=== PATIENT | female | born 1975 | race Caucasian/White ===

== ENCOUNTER 2017-07-16 16:40 | Emergency (ER) | payer OTHER ==
[2017-07-16 17:21] VITALS: BP 144/71
[2017-07-16] MEDS ORDERED: Azithromycin TAB* 250 MG PO ONE (17:33)
--- NOTE | 2017-07-16 17:37 | UC ---
Respiratory Complaint HPI - HPI Summary HPI Summary: 3 weeks of worsening cough, chest tightness and wheeze, no fevers, coughing up thick green sputum - History of Current Complaint Chief Complaint: UCRespiratory Time Seen by Provider: 07/16/17 17:29 Hx Obtained From: Patient Hx Last Menstrual Period: 3 wks ago ?: No Onset/Duration: Gradual Onset, Lasting Weeks - 3, Still Present Timing: Constant Severity Initially: Mild Severity Currently: Moderate Character: Cough: Productive Aggravating Factors: Exertion, Deep Breaths Alleviating Factors: Bronchodilator Associated Signs And Symptoms: Positive: Pleuritic Chest Pain, Wheezing, URI - Allergies/Home Medications Allergies/Adverse Reactions: Allergies Allergy/AdvReac Type Severity Reaction Status Date / Time Iodine Allergy Hives Verified 07/16/17 17:21 CT ORAL DRINK Allergy Unknown Rash And Uncoded 07/16/17 17:21 Itching Home Medications: Home Medications Cyclobenzaprine TAB* [Flexeril 10 MG TAB*] 1 tab PO DAILY 07/16/17 [History Confirmed 07/16/17] QUEtiapine XR TAB* [Seroquel Xr TAB*] 1 tab PO DAILY 07/16/17 [History Confirmed 07/16/17] PMH/Surg Hx/FS Hx/Imm Hx Previously Healthy: No Respiratory History: Asthma Other Psychological History: SA Disorder in remission - Surgical History Surgical History: None Surgery Procedure, Year, and Place: . TUBAL LIGATION. TONSILECTOMY. LT LUMPECTOMY 2007 (benign) - Family History Known Family History: Positive: None - Social History Occupation: Unemployed Lives: Alone Alcohol Use: None Alcohol Amount: Hx of 1 liter daily, decreased to 3 drinks/day to none Substance Use Type: None Substance Use Comment - Amount & Last Used: none in 9 years, Hx heroin Smoking Status (MU): Current Every Day Smoker Type: eCigarettes Amount Used/How Often: one daily Length of Time of Smoking/Using Tobacco: 23 years Have You Smoked in the Last Year: Yes Household Exposure Type: Cigarettes Review of Systems Constitutional: Negative Skin: Negative Eyes: Negative ENT: Nasal Discharge, Sinus Congestion, Sinus Pain/Tenderness Respiratory: Cough Cardiovascular: Negative Gastrointestinal: Negative Genitourinary: Negative Motor: Negative Neurovascular: Negative Musculoskeletal: Negative Neurological: Negative Psychological: Negative Is Patient Immunocompromised?: No All Other Systems Reviewed And Are Negative: Yes Physical Exam Triage Information Reviewed: Yes Appearance: Well-Appearing, No Pain Distress, Well-Nourished Vital Signs: Initial Vital Signs Temp 96.8 F 07/16/17 17:17 Pulse 94 07/16/17 17:17 Resp 18 07/16/17 17:17 BP 144/71 07/16/17 17:17 Pulse Ox 100 07/16/17 17:17 Vital Signs Reviewed: Yes Eye Exam: Normal Eyes: Positive: Conjunctiva Clear ENT Exam: Normal ENT: Positive: Normal ENT inspection, Hearing grossly normal, Pharynx normal, Nasal congestion, Nasal drainage, TMs normal, Uvula midline. Negative: Tonsillar swelling, Tonsillar exudate, Trismus, Muffled voice, Hoarse voice, Dental tenderness, Sinus tenderness Dental Exam: Normal Neck exam: Normal Neck: Positive: Supple, Nontender, No Lymphadenopathy Respiratory Exam: Normal Respiratory: Positive: Chest non-tender, Lungs clear, Normal breath sounds, No respiratory distress, No accessory muscle use Cardiovascular Exam: Normal Cardiovascular: Positive: RRR, No Murmur, Pulses Normal, Brisk Capillary Refill Musculoskeletal Exam: Normal Musculoskeletal: Positive: Strength Intact, ROM Intact, No Edema Neurological Exam: Normal Neurological: Positive: Alert, Muscle Tone Normal Psychological Exam: Normal Skin Exam: Normal UC Diagnostic Evaluation - Laboratory O2 Sat by Pulse Oximetry: 100 Respiratory Course/Dx - Course Course Of Treatment: Continue albuterol add zithromax, increase fluids, nicotine cesasation information follow blood pressure with pcp - Differential Dx/Diagnosis Provider Diagnoses: Acute bronchitis with bronchospasm, nicotine dependent, elevated blood pressure without dx of hypertension Discharge - Discharge Plan Condition: Stable Disposition: HOME Prescriptions: Azithromycin TAB* [Zithromax TAB (Z-DELROY) 250 mg #6 tabs] 250 mg PO DAILY #4 tab Patient Education Materials: How to Stop Smoking (ED), How to Use a Metered- Dose Inhaler (ED), Acute Bronchitis (ED), Hypertension (ED) Referrals: Jing Jaime NP [Primary Care Provider] - 2 Weeks
== END 2017-07-16 17:55 | disposition home or self-care (01) ==
LOC: UCEAST 16:40
DX: J20.9 Acute bronchitis, unspecified (principal); R03.0 Elevated blood-pressure reading, without diagnosis of hypertension; F17.210 Nicotine dependence, cigarettes, uncomplicated; Z88.8 Allergy status to other drugs, medicaments and biological substances; J45.909 Unspecified asthma, uncomplicated
CPT/HCPCS: 99212; A9270-GY; G0463

== ENCOUNTER 2018-10-11 20:01 | Emergency (ER) | payer OTHER ==
[2018-10-11 20:33] VITALS: BP 134/71
--- NOTE | 2018-10-11 20:40 | UC ---
Lower Extremity/Ankle HPI - HPI Summary HPI Summary: Pt kicked a couch at 1500 today injuring her right 5th toe. She stated she thinks the toe was dislocated because it was sticking out and she put it back into place. - History of Current Complaint Chief Complaint: UCLowerExtremity Stated Complaint: PINKY TOE INJURY Time Seen by Provider: 10/11/18 20:22 Hx Obtained From: Patient Hx Last Menstrual Period: 10/21/2018 ?: No Onset/Duration: Sudden Onset Severity Initially: Mild Severity Currently: Mild Pain Intensity: 3 Aggravating Factor(s): Ambulation Alleviating Factor(s): Nothing Able to Bear Weight: Yes - Risk Factors Gout Risk Factors: Negative DVT Risk Factors: Negative Septic Arthritis Risk Factor: Negative - Allergies/Home Medications Allergies/Adverse Reactions: Allergies Allergy/AdvReac Type Severity Reaction Status Date / Time Iodinated Contrast- Oral and Allergy Swelling Verified 10/11/18 20:23 IV Dye Of Face,Lips,& Throat CT ORAL DRINK Allergy Unknown Rash And Uncoded 07/16/17 17:21 Itching Home Medications: Home Medications Divalproex Sodium [Depakote ER] 500 mg PO DAILY 10/11/18 [History Confirmed 01/24] Escitalopram * [Lexapro 10 mg (NF)] 1 tab PO DAILY 10/11/18 [History Confirmed 10/11/18] Naproxen [Naproxen 500 mg tab] 500 mg PO Q12HR PRN 10/11/18 [History Confirmed 10/11/18] PMH/Surg Hx/FS Hx/Imm Hx Previously Healthy: Yes - Surgical History Surgical History: None Surgery Procedure, Year, and Place: . TUBAL LIGATION. TONSILECTOMY. LT LUMPECTOMY 2007 (benign) - Family History Known Family History: Positive: None - Social History Alcohol Use: Weekly Alcohol Amount: Hx of 1 liter daily, decreased to 3 drinks/day to none Substance Use Type: Marijuana Substance Use Comment - Amount & Last Used: Hx heroin Smoking Status (MU): Current Every Day Smoker Type: eCigarettes Amount Used/How Often: one daily Length of Time of Smoking/Using Tobacco: 23 years Have You Smoked in the Last Year: Yes Household Exposure Type: Cigarettes Review of Systems All Other Systems Reviewed And Are Negative: Yes Constitutional: Positive: Negative Skin: Positive: Negative Eyes: Positive: Negative ENT: Positive: Negative Respiratory: Positive: Negative Cardiovascular: Positive: Negative Gastrointestinal: Positive: Negative Genitourinary: Positive: Negative Motor: Positive: Negative Neurovascular: Positive: Negative Musculoskeletal: Positive: Other: - mild swelling to right 5th toe. Old bruise over dorsum of right foot at the base of 2nd, 3rd, and 4th toes from dropping cookbooks on her foot a few days ago. Neurological: Positive: Negative Psychological: Positive: Negative Is Patient Immunocompromised?: No Physical Exam Triage Information Reviewed: Yes Appearance: Well-Appearing, No Pain Distress, Well-Nourished Vital Signs: Initial Vital Signs Temp 98.7 F 10/11/18 20:19 Pulse 110 10/11/18 20:19 Resp 18 10/11/18 20:19 BP 134/71 10/11/18 20:19 Pulse Ox 100 10/11/18 20:19 Vital Signs Reviewed: Yes Musculoskeletal Exam: Normal Musculoskeletal: Positive: Other: - Mild swelling right 5th toe with tenderness on palpation, moderate ROM, brownish/purple bruise over dorsum right foot at the base of the 2nd, 3rd, and 4th toes, no deformity or swelling and non-tender on palpation. Good ROM Neurological Exam: Normal Neurological: Positive: Alert, Muscle Tone Normal Psychological Exam: Normal Skin Exam: Normal Lower Extremity Course/Dx - Course Course Of Treatment: Comfortable here. X-Ray shows a fracture at the base of the right 5th toe. Adiel tape applied and a post-op shoe. - Differential Dx/Diagnosis Differential Diagnosis/HQI/PQRI: Fracture (Closed) Provider Diagnosis: Fracture of toe of right foot Discharge - Sign-Out/Discharge Documenting (check all that apply): Patient Departure All imaging exams completed and their final reports reviewed: No - Discharge Plan Condition: Good Disposition: HOME Patient Education Materials: Toe Fracture (ED) Referrals: Mikal aPscual MD [Primary Care Provider] - Shelli Vargas MD [Medical Doctor] - Additional Instructions: Elevate as much as possible and apply ice intermittently. Keep the adiel tape on and the post-op shoe until you are seen by the orthopedist. Call tomorrow and make an appointment. You have a fracture of the base of the 5th toe. - Billing Disposition and Condition Condition: GOOD Disposition: Home
== END 2018-10-11 21:10 | disposition home or self-care (01) ==
LOC: UCEAST 20:01
DX: S92.591A Other fracture of right lesser toe(s), initial encounter for closed fracture (principal); F17.210 Nicotine dependence, cigarettes, uncomplicated; Z91.041 Radiographic dye allergy status; W22.8XXA Striking against or struck by other objects, initial encounter; Y92.9 Unspecified place or not applicable
CPT/HCPCS: 99213; G0463

== ENCOUNTER 2021-06-15 12:11 | Inpatient (IN) ==
[2021-06-15] MEDS ORDERED: Al Hydrox/Mg Hydrox/Simet LIQ 30 ML UDC PO PRN (14:06)
[2021-06-15] MEDS ORDERED: Lorazepam PYXIS KEY PRN (14:08)
[2021-06-15] MEDS ORDERED: LORazepam 2 mg VIAL 1 ml IM ONE (14:08)
[2021-06-15] MEDS ORDERED: Haloperidol 5 mg/ml SDV IV/IM 5 MG/ML AMP IM ONE ×2 (14:08→19:56)
[2021-06-15] MEDS ORDERED: diPHENhydraMINE IV 50 MG/ML 1 ml VIAL (BENADRYL) IM ONE (14:08)
[2021-06-15] MEDS ORDERED: Albuterol 2.5mg/3 ml (0.083%) NEB.SOLN INH PRN (14:08)
[2021-06-15] MEDS ORDERED: LORazepam 2 mg VIAL 1 ml ONE (14:09)
[2021-06-15] MEDS ORDERED: Midazolam 2 mg/2 ml VIAL 1 mg/ml 2 ml VIAL (2 mg) IM ONE (14:39)
[2021-06-15 16:05] LABS: ABS Basophils 0.1 10^3/ul (0-0.2); ABS Lymphocytes 1.3 10^3/ul (1.0-4.8); ABS Monocytes 0.5 10^3/ul (0-0.8); ABS Neutrophils 6.1 10^3/ul (1.5-7.7); Eosinophil % 0.5 %; Hematocrit 40 % (35-47); Hemoglobin 13.3 g/dL (12.0-16.0); Lymphocyte % 16.8 %; Mean Corpuscular HGB Conc 33 g/dL (31-36); Mean Corpuscular Hemoglobin 29 pg (27-31); Mean Corpuscular Volume 88 fL (80-97); Mean Platelet Volume 9.8 fL (7.4-10.4); Platelet Count 277 10^3/uL (150-450); Red Blood Count 4.53 10^6 /uL (3.70-4.87); Red Cell Distribution Width 16 % (10-15)
[2021-06-15 16:29] LABS: HCG Pregnancy < 0.60 mIU/mL
[2021-06-15 16:34] LABS: ALT 15 U/L (7-52); AST 15 U/L (13-39); Albumin/Globulin Ratio 1.3 (1-3); Alkaline Phosphatase 80 U/L (35-149); Anion Gap 5 mmol/L (2-11); Blood Urea Nitrogen 8 mg/dL (6-24); CO2 Carbon Dioxide 27 mmol/L (22-32); Calcium 9.2 mg/dL (8.6-10.3); Chloride 103 mmol/L (101-111); Glucose 101 mg/dL (70-100); Sodium 135 mmol/L (135-145)
[2021-06-15] MEDS ORDERED: Albuterol HFA INHALER 8 gm MDI INH PRN (17:00)
[2021-06-15 17:06] LABS: Acetaminophen < 15 mcg/mL; Alcohol, S < 13 mg/dL (<13); Salicylate < 2.50 mg/dL (<30)
[2021-06-15 17:32] LABS: Lithium 0.45 mmol/L (0.6-1.2)
[2021-06-15 18:26] LABS: Rapid COVID-19 Molecular Undetected (Undetected)
[2021-06-15] MEDS ORDERED: Nicotine GUM 2MG FRUIT FLAVOR PO ONE (20:30)
[2021-06-15] MEDS ORDERED: Nicotine GUM 2MG FRUIT FLAVOR PO PRN (21:28)
[2021-06-15] MEDS: Mometasone/Formoter 100/5 MDI INH SCH (22:24)
[2021-06-16 08:55] LABS: HDL Cholesterol 42.4 mg/dL
[2021-06-16] MEDS: Mometasone/Formoter 100/5 MDI INH SCH ×2 (09:31→19:50)
[2021-06-16] MEDS: Nicotine PATCH 21 MG/24 HR PATCH TRANSDERM SCH (09:33)
[2021-06-16] MEDS: Buprenorp/Nalox 4-1 MG FILM SL FILM SCH (09:34)
[2021-06-16 12:01] LABS: TSH Ultra Thyroid Stim Horm 3.45 mcIU/mL (0.34-5.60)
[2021-06-16 12:05] LABS: Free T4 0.64 ng/dL (0.61-1.12)
[2021-06-17] MEDS: Buprenorp/Nalox 4-1 MG FILM SL FILM SCH (10:27)
[2021-06-17] MEDS ORDERED: Haloperidol 5 mg/ml SDV IV/IM 5 MG/ML AMP ONE (10:56)
[2021-06-17] MEDS ORDERED: LORazepam 2 mg VIAL 1 ml ONE (10:56)
[2021-06-17] MEDS: Nicotine PATCH 21 MG/24 HR PATCH TRANSDERM SCH ×2 (12:32→12:37)
[2021-06-17] MEDS: Mometasone/Formoter 100/5 MDI INH SCH ×3 (12:32→21:24)
[2021-06-17 20:32] LABS: Urine Appearance Turbid; Urine Bilirubin Negative (Negative); Urine Blood 3+ (Negative); Urine Color Yellow; Urine Glucose Negative (Negative); Urine Ketones Trace (Negative); Urine Nitrite Negative (Negative); Urine Protein 1+(30 mg/dL) (Negative); Urine Specific Gravity 1.017 (1.002-1.030); Urine Urobilinogen Negative (Negative)
[2021-06-17 20:36] LABS: Urine Amorphous Crystals Present (Absent); Urine Bacteria 1+ (Absent); Urine Red Blood Cell 2+(6-10/hpf) (Absent); Urine Squamous Epithelial Cell Present (Absent); Urine White Blood Cell 2+(11-20/hpf) (Absent)
[2021-06-17 20:49] LABS: Urine Benzodiazepine Screen Presumptive Positive (None Detect); Urine Cannabinoids Screen Presumptive Positive (None Detect); Urine Opiates Screen None Detected (None Detect)
[2021-06-18 07:22] LABS: ABS Basophils 0.1 10^3/ul (0-0.2); ABS Eosinophils 0.2 10^3/ul (0-0.6); ABS Monocytes 0.5 10^3/ul (0-0.8); Eosinophil % 3.4 %; Hematocrit 37 % (35-47); Hemoglobin 12.3 g/dL (12.0-16.0); Mean Corpuscular HGB Conc 33 g/dL (31-36); Mean Corpuscular Hemoglobin 29 pg (27-31); Mean Corpuscular Volume 88 fL (80-97); Mean Platelet Volume 9.6 fL (7.4-10.4); Nucleated Red Blood Cells % 0.1; Platelet Count 237 10^3/uL (150-450); Red Blood Count 4.18 10^6 /uL (3.70-4.87); Red Cell Distribution Width 16 % (10-15); White Blood Count 5.7 10^3/uL (3.5-10.8)
[2021-06-18 07:47] LABS: Albumin 3.7 g/dL (3.2-5.2); Albumin/Globulin Ratio 1.4 (1-3); C Reactive Protein 11.49 mg/L (<8.01); Calcium 8.7 mg/dL (8.6-10.3); Globulin 2.7 g/dL (2-4); Potassium 4.1 mmol/L (3.5-5.0); Total Bilirubin 0.4 mg/dL (0.2-1.0); Total Protein 6.4 g/dL (6.4-8.9)
[2021-06-18] MEDS: Buprenorp/Nalox 4-1 MG FILM SL FILM SCH (08:23)
[2021-06-18] MEDS: Mometasone/Formoter 100/5 MDI INH SCH ×2 (08:27→20:27)
[2021-06-18] MEDS: Nicotine PATCH 21 MG/24 HR PATCH TRANSDERM SCH (08:58)
[2021-06-18 14:26] LABS: Magnesium 2.2 mg/dL (1.9-2.7)
[2021-06-19] MEDS: Nicotine PATCH 21 MG/24 HR PATCH TRANSDERM SCH ×2 (08:03→09:58)
[2021-06-19] MEDS: Mometasone/Formoter 100/5 MDI INH SCH (08:19)
[2021-06-19] MEDS: Buprenorp/Nalox 4-1 MG FILM SL FILM SCH (08:28)
[2021-06-19] MEDS ORDERED: Multivitamins/Minerals TAB PO SCH (09:00)
[2021-06-19 09:49] VITALS: BP 134/87
== END 2021-06-19 16:40 | disposition home or self-care (01) | DRG 753 ==
LOC: ED 12:11 → EDHOLD 14:06 → BSU 19:51
PROVIDERS: ADMIT Psychiatry & Neurology Psychiatry; ATTEND Psychiatry & Neurology Psychiatry